=== PATIENT | male | born 1990 | race Two or more races ===

== ENCOUNTER 2021-08-23 18:24 | Emergency (ER) | payer MEDICAID ==
[~2021-08-23] VITALS: Ht 193 cm; Wt 129.7 kg
[2021-08-23 18:29] VITALS: BP_SYST 138
== END 2021-08-23 19:50 | disposition left against medical advice (07) ==
LOC: SED 18:24
DX: R07.89 Other chest pain (principal); Z53.21 Procedure and treatment not carried out due to patient leaving prior to being seen by health care provider
CPT/HCPCS: 93005